=== PATIENT | female | born 1985 | race American Indian/Alaskan Native ===

== ENCOUNTER 2020-03-15 10:57 | Emergency (ER) | payer OTHER, MEDICAID ==
[2020-03-15 11:14] VITALS: BP 120/73
[2020-03-15] MEDS ORDERED: DIPHtheria,PERTUSSIS(ACELL),TETANUS VACCINE/PF 0.5 ML VIAL IM ONE (11:50)
[2020-03-15] MEDS ORDERED: HYDROcodone/ACETAMINOPHEN 5-325 MG TAB PO ONE (11:50)
[2020-03-15] MEDS ORDERED: NEOMY 3.5 MG/BACIT 400 UNITS/POLY B 5000 UNITS/GM OINT PACKET TP ONE (11:52)
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
== END 2020-03-15 14:27 | disposition home or self-care (01) ==
LOC: ED 10:57
DX: S01.411A Laceration without foreign body of right cheek and temporomandibular area, initial encounter (principal); S93.401A Sprain of unspecified ligament of right ankle, initial encounter; H05.221 Edema of right orbit; M79.671 Pain in right foot; M79.601 Pain in right arm; Z79.899 Other long term (current) drug therapy; V49.49XA Driver injured in collision with other motor vehicles in traffic accident, initial encounter; W22.10XA Striking against or struck by unspecified automobile airbag, initial encounter; Y93.89 Activity, other specified; Y92.410 Unspecified street and highway as the place of occurrence of the external cause; Y99.8 Other external cause status
CPT/HCPCS: 29515; 70486; 73060; 73610; 73630; 90471; 90715; 99284; A6250

== ENCOUNTER 2020-03-22 14:59 | Emergency (ER) | payer MEDICAID, OTHER ==
[2020-03-22 15:24] VITALS: BP 125/67
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
== END 2020-03-22 16:22 | disposition left against medical advice (07) ==
LOC: ED 14:59
DX: S82.891A Other fracture of right lower leg, initial encounter for closed fracture (principal); Z53.21 Procedure and treatment not carried out due to patient leaving prior to being seen by health care provider; X58.XXXA Exposure to other specified factors, initial encounter; Y93.89 Activity, other specified; Y92.89 Other specified places as the place of occurrence of the external cause; Y99.8 Other external cause status